=== PATIENT | female | born 1970 | race Caucasian/White ===

== ENCOUNTER → 2016-12-29 | Outpatient (CLI) | payer OTHER ==
--- NOTE | 2016-12-29 13:48 | MAMMOGRAPHY REPORT ---
THIS REPORT HAS BEEN AMENDED. BILATERAL DIGITAL DIAGNOSTIC MAMMOGRAM TOMOSYNTHESIS WITH CAD AND TARGETED RIGHT ULTRASOUND: 7 CLINICAL HISTORY: 46-year-old woman incidentally found to have a 1 x 2 cm asymmetry in the inferior r ight breast seen on recent abdomen and pelvis CT performed at an outside institution. The report fro m the outside CT is available, but the images are not currently available for review. Also baseline mammogram. TECHNIQUE: Breast tomosynthesis in addition to standard 2D mammography was performed. Current study was also evaluated with a Computer Aided Detection (CAD) system. COMPARISON: No prior exams were available for comparison. BREAST COMPOSITION: There are scattered areas of fibroglandular density in both breasts. FINDINGS: No suspicious mass, architectural distortion or cluster of microcalcifications is seen in the breasts. In particular, there is no asymmetry or mass identified in the inferior right breast to correspond to the CT finding. Targeted ultrasound was performed throughout the inferior right breast. Sonographically normal fibro glandular tissue is seen without a discrete solid or cystic mass. IMPRESSION: ACR BI-RADS CATEGORY 0: INCOMPLETE EVALUATION: NEED ADDITIONAL IMAGING EVALUATION, TARG ETED ULTRASOUND ACR BI-RADS CATEGORY 0: INCOMPLETE EVALUATION: NEED ADDITIONAL IMAGING EVALUATION There is no mammographic evidence of malignancy bilaterally, or targeted sonographic evidence of roger gnancy in the inferior right breast. I suspect that the recent outside CT findings represented asymm etric fibroglandular tissue, possibly secondary to imaging position, given that there is no suspiciou s mammographic or sonographic abnormality. However, I will await the outside CT images before making a final recommendation. Then an addendum will be made to this report. These results and recommendations were discussed with the patient at the time of the exam. Approximately 10% of breast cancers are not detected with mammography. A negative mammographic report should not delay biopsy if a clinically suggestive mass is present. Glenna Carlos M.D. ay/:12/29/2016 12:22:40 Testing Consultant: Shayy BULLOCK)([place]), [facility] letter sent: Need Priors 0 BI-RADS Code: ACR BI-RADS Category 0: Incomplete Evaluation: Need Additional Imaging Evaluation Ult rasound BI-RADS: ACR BI-RADS Category 0: Incomplete Evaluation: Need Additional Imaging Evaluation AMENDMENT: 12/30/2016 Glenna Carlos M[address]D. Outside CT abdomen and pelvis images from an exam performed 12/10/2016 were overnighted and became av ailable for review. The 1.1 x 2.0 cm nonspecific right inferior breast asymmetric nodular density se en on the first image of the exam is felt to represent normal glandular tissue that is incompletely i king. When comparing to a prior yet recent CT abdomen and pelvis from 11/23/2016, which includes sl ightly more superior breast tissue when comparing to the December exam, the glandular tissue is felt to be symmetric and not represent any suspicious or new mass. Additionally in light of the normal mamm ograms and ultrasound, this finding is felt to represent normal glandular tissue. Therefore, would r ecommend routine screening mammography in one year. Amended BI-RADS: ACR BI-RADS Category 2: Benign letter sent: Normal 05/05
== END | disposition home or self-care (01) ==
LOC: C.MAMM 08:35
PROVIDERS: ATTEND Physician Assistant
DX: N64.89 Other specified disorders of breast (principal)